=== PATIENT | female | born 1955 | race Caucasian/White ===

== ENCOUNTER 2017-05-15 15:47 | Outpatient (CLI) ==
--- NOTE | 2017-05-15 16:23 | DI ---
EXAM: Two views of the chest. History: Congestive heart failure. Findings: Heart is upper limits of normal in size. Pacer device. No focal consolidation. No appre ciable pleural fluid and no pneumothorax. No acute osseous abnormalities. Surgical clips seen withi n the left axilla. Impression: No acute cardiopulmonary process.
== END 2017-05-15 15:48 | disposition home or self-care (01) ==
LOC: RAD 15:47
PROVIDERS: ATTEND Family Medicine
DX: I50.20 Unspecified systolic (congestive) heart failure (principal); R06.00 Dyspnea, unspecified

== ENCOUNTER 2017-10-16 15:47 | Outpatient (CLI) ==
--- NOTE | 2017-10-16 17:16 | DI ---
Exam: Chest two-view. HISTORY: Bronchitis. Comparison: 05/15/2017 Findings: Two images of the lumbar spine are submitted. These demonstrate moderately expanded lungs without pneumothorax, edema or lobar consolidation. The cardiac silhouette is at the upper limit of normal size. The cardiac pacemaker is unchanged. There are surgical clips overlying the left axill a. Mild degenerative findings are noted in the spine. Surgical clips are also noted in the right up per abdomen. Impressions: No acute cardiopulmonary disease. Stable pacemaker.
== END 2017-10-16 15:48 | disposition home or self-care (01) ==
LOC: RAD 15:47
PROVIDERS: ATTEND Family Medicine
DX: J40 Bronchitis, not specified as acute or chronic (principal)

== ENCOUNTER 2018-10-02 07:30 | Day surgery (SDC) ==
[2018-10-02] MEDS ORDERED: LIDOCAINE 1% 20 ML MDV ID STA (08:38)
[2018-10-02] MEDS ORDERED: DIPRIVAN 20 ML VIAL IVP ONE (09:15)
[2018-10-02] MEDS ORDERED: VERSED ONE (09:15)
--- NOTE | 2018-10-03 08:53 | OP ---
INDICATIONS FOR PROCEDURE: 62-year-old female presents for surveillance colonoscopy. She has a history of colon polyps on colonoscopy greater than 5 years ago. Pathology was unknown as the polyp was destroyed. MEDICATIONS: SEE ANESTHESIA NOTES. PROCEDURE: COLONOSCOPY, SNARE POLYPECTOMY. REPORT: The risks, benefits, alternatives and limitations were discussed in detail with the patient. Informed consent was obtained. After adequate sedation was achieved, a digital rectal exam revealed good tone, no masses. The colonoscope was introduced into the rectum and advanced under direct visual guidance to the cecum. The cecum was identified by the appendiceal orifice and IC valve. I then slowly withdrew the scope in a circumferential manner examining the mucosa quite carefully. I looked on the proximal and distal side of folds and flexures as best as possible. I was able to retroflex the scope in the right colon as well as the left colon to increase visualization. In the transverse colon there was a small diminutive 4 or 5 mm sessile polyp. I removed this by snare technique. The polyp was destroyed. There was no tissue remaining. Withdrawing the scope further revealed a small 5 or 6 mm slightly raised polyp in the sigmoid. This was removed by snare technique and retrieved. There were scattered diverticulosis throughout the sigmoid. No other abnormalities were noted including on retroflex view of the anal canal. The prep was good. The withdrawal time was 10 minutes and 45 seconds. The patient tolerated the procedure well with stable vital signs and pulse oximetry throughout. IMPRESSION: 1. Two (2) small polyps removed or destroyed as above. 2. Sigmoid diverticulosis. RECOMMENDATIONS: 1. High fiber diet. 2. Office visit as needed. 3. Colonoscopy examination again in 5 years, sooner if there are signs or symptoms to indicate otherwise. CC: DR. THEO ARAIZA
[2018-10-03 12:23] VITALS: BP 128/59
== END 2018-10-02 10:50 | disposition home or self-care (01) ==
LOC: SURG 07:30
PROVIDERS: ATTEND Internal Medicine Gastroenterology
DX: Z86.010 Personal history of colon polyps (principal); R19.7 Diarrhea, unspecified; K63.5 Polyp of colon